=== PATIENT | male | born 1975 | race Caucasian/White ===

== ENCOUNTER 2017-09-27 18:36 | Emergency (ER) | payer SELFPAY ==
[2017-09-27] MEDS: CLINDAMYCIN 600MG PREMIX 50 ML IV (19:15)
[2017-09-27] MEDS: LIDOCAINE 1% PF 30 ML VIAL. INJ (19:15)
[2017-09-27] MEDS: MORPHINE SULFATE 4 MG/ML DISP.SYRIN. IV (19:16)
[2017-09-27 19:40] LABS: POC GLUCOSE 70 mg/dL (70-99)
[2017-09-27] MEDS: SMZ/TMP 800/160MG TABLET. PO (20:20)
[2017-09-27] MEDS: CEPHALEXIN 250 MG CAPSULE. PO (20:20)
== END 2017-09-27 20:23 | disposition home or self-care (01) ==
LOC: ER 18:36
DX: L02.511 Cutaneous abscess of right hand (principal)
CPT/HCPCS: 10060; 82962; 87071; 87075; 96365; 96375; 99284; J2270; J3490